=== PATIENT | female | born 1950 | race Caucasian/White ===

== ENCOUNTER → 2018-03-08 | Outpatient (CLI) | payer MEDICARE, BC ==
--- NOTE | 2018-03-08 16:37 | PCVCIMAG ---
APPROVED REPORT Study performed: 03/08/2018 15:13:16 EXAM: Comprehensive 2D, Doppler, and color-flow Echocardiogram Patient Location: Echo lab Status: routine BSA: 1.94 HR: 60 bpmBP: 136/89 mmHg Rhythm: NSR Other Information Study Quality: Adequate Risk Factors: Cardiac Risk Factors: HTN Indications PSVT, PVCs 2D Dimensions IVSd: 12.34 (7-11mm) LVDd: 36.84 mm PWd: 9.65 (7-11mm)Ascending Ao: 38.63 (22-36mm) LVDs: 28.73 (25-40mm) Left Atrium: 38.38 (27-40mm) Aortic Root: 30.61 mm LV Single Plane 4CH: 54.98 % LV Single Plane 2CH: 56.74 % Biplane EF: 55.8 % Volumes Left Atrial Volume (Systole) Single Plane 4CH: 70.79 mLSingle Plane 2CH: 56.85 mL LA ESV Index: 33.00 mL/m2 Aortic Valve AoV Peak Epi.: 1.33 m/s AO Peak Gr.: 7.10 mmHgLVOT Max P.78 mmHg LVOT Max V: 0.83 m/s AI Vmax: 3.64 m/s AI Pickett: 2.15 m/s2 AI PHT: 492.65 ms Mitral Valve E/A Ratio: 1.0 MV Decel. Time: 245.03 ms MV E Max Epi.: 0.49 m/s MV A Epi.: 0.51 m/s IVRT: 128.03 ms Pulmonary Valve PV Peak Epi.: 0.81 m/sPV Peak Gr.: 2.63 mmHg Pulmonary Vein P Vein S: 0.31 m/sP Vein A: 0.37 m/s P Vein D: 0.50 m/sP Vein A Dur.: 128.0 msec P Vein S/D Ratio: 0.62 Tricuspid Valve TR Peak Epi.: 2.39 m/s TR Peak Gr.: 22.77 mmHg Left Ventricle The left ventricle is normal size. There is normal LV segmental wall motion. There is normal left ventricular wall thickness. Left ventricular systolic function is normal. The left ventricular ejection fraction is within the normal range. LVEF is 55-60%. Grade I - abnormal relaxation pattern. Right Ventricle The right ventricle is normal size. The right ventricular systolic function is normal. Atria Left atrium is borderline dilated. The right atrium size is normal. Aortic Valve The aortic valve is normal in structure. Mild aortic regurgitation. There is no aortic valvular stenosis. Mitral Valve The mitral valve is normal in structure. Mild mitral regurgitation. No evidence of mitral valve stenosis. Tricuspid Valve The tricuspid valve is normal in structure. Mild tricuspid regurgitation with PAP of 30 mmHg. Pulmonic Valve The pulmonary valve is normal in structure. There is no pulmonic valvular regurgitation. Great Vessels The aortic root is normal in size. The ascending aorta is borderline dilated to 3.9 cm. IVC is normal in size and collapses >50% with inspiration. Pericardium There is no pericardial effusion. There is no pleural effusion. <Conclusion> The left ventricle is normal size. LVEF is 55-60%. Grade I - abnormal relaxation pattern. The right ventricle is normal size. Left atrium is borderline dilated. The right atrium size is normal. Mild aortic regurgitation. There is no aortic valvular stenosis. Mild mitral regurgitation. Mild tricuspid regurgitation with PAP of 30 mmHg. The aortic root is normal in size. There is no pericardial effusion.
== END | disposition home or self-care (01) ==
LOC: PCVCIMAG 16:00
PROVIDERS: ATTEND Internal Medicine Cardiovascular Disease
DX: I10 Essential (primary) hypertension (principal); I47.1 Supraventricular tachycardia; I08.1 Rheumatic disorders of both mitral and tricuspid valves; I49.9 Cardiac arrhythmia, unspecified; R07.9 Chest pain, unspecified; E78.5 Hyperlipidemia, unspecified; I49.3 Ventricular premature depolarization
CPT/HCPCS: 80061; 93005; 93306; G0463

== ENCOUNTER → 2018-05-17 | Outpatient (CLI) | payer MEDICARE, BC | END | disposition home or self-care (01) | LOC: PCVCCLINIC 11:34 | PROVIDERS: ATTEND Internal Medicine Cardiovascular Disease | DX: R00.0 Tachycardia, unspecified (principal); R94.31 Abnormal electrocardiogram [ECG] [EKG]; K21.9 Gastro-esophageal reflux disease without esophagitis; E03.9 Hypothyroidism, unspecified; Z88.0 Allergy status to penicillin; Z88.8 Allergy status to other drugs, medicaments and biological substances; Z79.899 Other long term (current) drug therapy | CPT/HCPCS: 93005; G0463 ==